=== PATIENT | female | born 1985 | race African-American/Black ===

== ENCOUNTER 2016-08-05 15:30 | Emergency (ER) | payer OTHER ==
[2016-08-05 15:35] VITALS: BP 97/65; PULSE 90; RESP 14; O2SAT 99
[2016-08-05 15:42] VITALS: BP 101/74
--- NOTE | 2016-08-05 16:04 | ED.REPORT ---
HPI-General Illness Date of Service Aug 05, 2016 ED Provider: Yayo Matos PA-C Michelle is otherwise healthy 30-year-old female with a chief complaint of possible blood bite and leg swelling. She reports that the night before last she was sleeping in a hotel bed which she felt something bite her left leg. She got up and moved to the other bed at that time. Today she complains of pain , redness swelling at that site as well as several sites on her right leg. She complains of a sense of pressure in her legs as well as an episode of chills, diarrhea. Denies abdominal pain, back pain, nausea, vomiting, fever. Denies taking medications other than ibuprofen last night. Denies allergies. Denies new creams, lotions, cleansers. Denies other lesions. Nursing Notes Stated Complaint: POSSIBLE BUG BITE/SWELLING LEGS Chief Complaint: General Complaint Nursing Notes Reviewed: Yes Scheduled Cephalexin (Cephalexin) 500 Mg Tablet 500 MG PO QID Scheduled PRN hydrOXYzine Hcl (HydrOXYzine Hcl) 25 Mg Tablet 25 MG PO TID PRN PRN For Itching General Time Seen by MD: 15:43 Chief Complaint Other (insect bite) Past Medical History Past Medical History Denies Denies: Diabetes mellitus Review of Systems Negative unless stated otherwise in history of present illness Physical Exam General: Well appearing, well developed, well nourished, no acute distress. Left leg: Small area of scale on distal anterior villa surrounded by approximately 2 cm of erythema with associated tenderness. DP and PT pulses 2+ . Negative pitting edema. Full range of motion of the ankle. Right leg: Three 1-2cm regions of redness, swelling, tenderness on the distal anterior right leg. DP and PT pulses 2+. Negative pitting edema. Region of the lateral malleoli is notably swollen and warm when compared to the left. Full range of motion of the ankle. Head: Atraumatic, normocephalic. Eyes: No scleral icterus or injection. No discharge. Vision grossly intact. ENT: Voice clear, hearing grossly intact. Respiratory: No respiratory distress, no increased work of breathing. Speaks in complete sentences. Skin: Warm and dry. Neurological: Grossly nonfocal. Psychological: alert and oriented. Speech appropriate, linear and logical. Behavior appropriate. Vital Signs Vital Signs Date Time Temp Pulse Resp B/P Pulse Ox O2 Delivery O2 Flow Rate FiO2 6/24/17 16:52 36.7 76 16 128/66 98 Room Air 08/05/16 15:42 101/74 08/05/16 15:35 36.8 90 14 /65 99 Room Air Normal Re-Eval/Medical Decision Med Decision/Clinical Course Otherwise healthy 30-year-old female presents with chief complaint possible insect bites, leg swelling. Reports feeling a bite will sleep in a motel room bed approximately 2 nights ago. She is also spent time [place] in the [place] recently. Today complains of pain, swelling, sensation of pressure in her leg. Denies new medications, cleansers, creams, lotions. Points out several red, tender, swollen areas on her right villa as well as one on her left. There is some swelling over her right lateral malleolus. She has full range of motion in bilateral ankles. Physical exam is otherwise benign, extremely well-appearing, normal vitals. When I am reassured against a dangerous envenomation such as black , Brown recluse. I am similarly reassure this unlikely septic joint, gout. After discussion with Dr. Cristina I believe these are insect bites, with a possible overlying cellulitis. Advise [id number] analgesia, provided prescriptions for hydroxyzine and Keflex. Provided referral for local primary care follow-up. Provided surgical emergent return precautions. Patient verbalized understanding of and consent to the plan. Discharge & Departure Primary Impression: Insect bites Encounter type: initial encounter Qualified Code: W57.XXXA - Bitten or stung by nonvenomous insect and other nonvenomous arthropods, initial encounter Additional Impression: Cellulitis Site of cellulitis: extremity Site of cellulitis of extremity: lower extremity Laterality: unspecified laterality Qualified Code: L03.119 - Cellulitis of unspecified part of limb Disposition: Home Discharge Condition All VS Reviewed: Yes Condition: Stable Patient Instructions: Cellulitis (ED) Additional Instructions: Evaluation in the emergency department for leg swelling includes history and physical examination. These both suggested that your symptoms are caused by insect bites. Because of the swelling, I feel that there is a chance these have become infected. I will write a prescription for Keflex 500 mg to be taken 4 times a day for 5 days. This is an antibiotic to start infection. The pain is best treated with 600 mg of ibuprofen (Advil, Motrin) every 6 hours , or 1000 mg of acetaminophen (Tylenol) every 6 hours. These drugs can be taken at the same time for more severe pain. I will also write a prescription for hydroxyzine, which will help reduce the reaction to bug bites. I will give you a referral to a primary care provider here [place]. Please contact them tomorrow to arrange follow-up in the next week or so. Return to the emergency department for any new or worsening symptoms including increasing swelling, pain, redness or the appearance of pus. Referrals: Gisela Bellamy MD EDSupervising Provider for APC: Manuel Lu Seth PA-C Aug 05, 2016 16:04
[2016-08-05] MEDS ORDERED: CEPH500T PO (16:49)
[2016-08-05] MEDS ORDERED: HYDR-656 PO (16:49)
[2016-08-05 16:52] VITALS: BP 128/66; PULSE 76; RESP 16; O2SAT 98
== END 2016-08-05 16:53 | disposition home or self-care (01) ==
LOC: SED 15:30
DX: L03.116 Cellulitis of left lower limb (principal); L03.115 Cellulitis of right lower limb; W57.XXXA Bitten or stung by nonvenomous insect and other nonvenomous arthropods, initial encounter; Y93.89 Activity, other specified; Y92.89 Other specified places as the place of occurrence of the external cause; Y99.8 Other external cause status